=== PATIENT | female | born 1955 | race Caucasian/White ===

== ENCOUNTER 2018-06-09 21:28 | Emergency (ER) | payer OTHER ==
[~2018-06-09] VITALS: Ht 157.5 cm; Wt 88.5 kg
[2018-06-09] MEDS ORDERED: OMEPRAZOLE40 MG (22:01)
[2018-06-09] MEDS ORDERED: METHOTREXATE2.5 MG (22:01)
[2018-06-09] MEDS ORDERED: DESLORATADINE5 M1 (22:01)
[2018-06-09] MEDS ORDERED: GABAPENTIN300 MG (22:02)
[2018-06-10] MEDS ORDERED: CIPRO500 MG PO (05:02)
[2018-06-10] MEDS ORDERED: LEVSIN/SL0.125 MG SL (05:02)
== END 2018-06-10 05:35 ==
LOC: ER 21:28 → EDBD 21:29 → ER 21:29
DX: K57.90 Diverticulosis of intestine, part unspecified, without perforation or abscess without bleeding (principal); R10.2 Pelvic and perineal pain

== ENCOUNTER 2018-11-13 12:58 | Emergency (ER) | payer OTHER ==
[~2018-11-13] VITALS: Ht 152.4 cm; Wt 90.7 kg
[~2018-11-13 12:58] MED LIST: CIPRO500 MG PO; DESLORATADINE5 M1; GABAPENTIN300 MG; LEVSIN/SL0.125 MG SL; METHOTREXATE2.5 MG; OMEPRAZOLE40 MG
== END 2018-11-13 21:44 | disposition home or self-care (01) ==
LOC: ER 12:58
DX: K57.32 Diverticulitis of large intestine without perforation or abscess without bleeding (principal); R10.2 Pelvic and perineal pain

== ENCOUNTER 2019-02-14 18:47 | Emergency (ER) | payer OTHER ==
[~2019-02-14] VITALS: Ht 152.4 cm; Wt 86.2 kg
[2019-02-14] MEDS ORDERED: OMEPRAZOLE40 MG (19:03)
[2019-02-14] MEDS ORDERED: CLARINEX-D 121 EACH (19:03)
[2019-02-15] MEDS ORDERED: ZANTAC300 MG PO (02:10)
[2019-02-15] MEDS ORDERED: ORASEP SPRAY30 ML MM (02:10)
== END 2019-02-15 02:17 | disposition home or self-care (01) ==
LOC: ER 18:47
DX: M54.89 Other dorsalgia (principal); R07.89 Other chest pain

== ENCOUNTER 2019-07-05 16:02 | Emergency (ER) | payer OTHER ==
[~2019-07-05] VITALS: Ht 157.5 cm; Wt 90.7 kg
[~2019-07-05 16:02] MED LIST changes: +CLARINEX-D 121 EACH; +ORASEP SPRAY30 ML MM; +ZANTAC300 MG PO
[2019-07-05] MEDS ORDERED: GRALISE600 MG (17:03)
== END 2019-07-05 21:13 | disposition home or self-care (01) ==
LOC: ER 16:02
DX: K57.32 Diverticulitis of large intestine without perforation or abscess without bleeding (principal)

== ENCOUNTER 2020-01-09 14:59 | Emergency (ER) | payer OTHER ==
[~2020-01-09] VITALS: Ht 157.5 cm; Wt 86.2 kg
[~2020-01-09 14:59] MED LIST changes: +GRALISE600 MG
[2020-01-09] MEDS ORDERED: ADULT LOW DOSE81 M1 (15:24)
[2020-01-09] MEDS ORDERED: CLONAZEPAM0.5 MG PO (15:24)
== END 2020-01-09 23:25 | disposition home or self-care (01) ==
LOC: ER 14:59
DX: K57.30 Diverticulosis of large intestine without perforation or abscess without bleeding (principal); R10.32 Left lower quadrant pain; L50.8 Other urticaria; T78.49XA Other allergy, initial encounter; X58.XXXA Exposure to other specified factors, initial encounter

== ENCOUNTER 2020-08-26 12:05 | Emergency (ER) | payer OTHER ==
[~2020-08-26] VITALS: Ht 157.5 cm; Wt 90.7 kg
[~2020-08-26 12:05] MED LIST changes: +ADULT LOW DOSE81 M1; +CLONAZEPAM0.5 MG PO
[2020-08-26] MEDS ORDERED: HORIZANT300 MG (12:23)
== END 2020-08-26 16:17 | disposition home or self-care (01) ==
LOC: ER 12:05
DX: L50.8 Other urticaria (principal)

== ENCOUNTER → 2020-10-27 | Emergency (ER) | payer OTHER ==
[~2020-10-27] VITALS: Ht 157.5 cm; Wt 93.0 kg
[~2020-10-27] MED LIST changes: +HORIZANT300 MG; +PANADOL MAXIMU500 MG; +XOPENEX0.63 MG/3
== END | disposition home or self-care (01) ==
LOC: ER 06:26 → CPU-OBS 06:28 → ER 06:28
DX: R07.89 Other chest pain (principal); R06.02 Shortness of breath

== ENCOUNTER 2021-06-29 14:21 | Emergency (ER) | payer OTHER ==
[~2021-06-29] VITALS: Ht 157.5 cm; Wt 86.2 kg
== END 2021-06-29 18:37 | disposition home or self-care (01) ==
LOC: ER 14:21
DX: M79.605 Pain in left leg (principal)

== ENCOUNTER 2022-06-11 11:06 | Emergency (ER) | payer OTHER ==
[~2022-06-11] VITALS: Ht 157.5 cm; Wt 90.7 kg
[2022-06-11] MEDS ORDERED: INDOMETHACIN50 M1 PO (11:33)
[2022-06-11] MEDS ORDERED: MILLIPRED5 MG (11:34)
[2022-06-11] MEDS ORDERED: DORZOLAMIDE-TIM10 ML (11:36)
== END 2022-06-11 21:58 | disposition home or self-care (01) ==
LOC: ER 11:06
DX: K57.32 Diverticulitis of large intestine without perforation or abscess without bleeding (principal); K76.0 Fatty (change of) liver, not elsewhere classified; I10 Essential (primary) hypertension